=== PATIENT | female | born 1970 | race Caucasian/White ===

== ENCOUNTER 2018-07-14 07:56 | Outpatient (CLI) | payer OTHER ==
[~2018-07-14 07:56] MED LIST: EAR WAX DROPS15 M1 OTIC
== END 2018-07-14 08:00 | disposition home or self-care (01) ==
LOC: SONOGRAMA 07:56
DX: E04.1 Nontoxic single thyroid nodule (principal)

== ENCOUNTER 2021-07-10 07:52 | Outpatient (CLI) | payer OTHER | END 2021-07-10 07:56 | disposition home or self-care (01) | LOC: SONOGRAMA 07:52 | PROVIDERS: ATTEND Pathology Anatomic Pathology & Clinical Pathology | DX: E03.8 Other specified hypothyroidism (principal) ==

== ENCOUNTER → 2025-01-02 11:31 | Outpatient (CLI) | payer OTHER ==
[2025-01-02 09:07] LABS: HEMATOCRIT 39.3 % (36.0-45.00); HEMOGLOBIN 14.1 g/dL (12.0-15.00); MEAN CELL VOLUME 84.6 fL (80.00-100.00); MEAN CORPUSCULAR HEMOGLOBIN 30.4 pg (27.00-32.0); MEAN CORPUSCULAR HGB CONC 35.9 g/dl (32.0-36.0); PLATELET COUNT 194 K/uL (150-450); RED BLOOD COUNT 4.64 M/uL (4.00-6.00); RED CELL DISTRIBUTION WIDTH 13.6 % (11.5-14.5)
[2025-01-02 09:12] LABS: PH,URINE 6.5 (5.0-8.0); URINE APPEARANCE Clear; URINE BILIRRUBIN Negative (NEGATIVE); URINE BLOOD Negative; URINE COLOR Yellow; URINE GLUCOSE Negative (NEGATIVE); URINE KETONE Negative (NEGATIVE); URINE LEUKOCYTE Moderate; URINE NITRATE Negative; URINE PROTEIN Negative (NEGATIVE); URINE UROBILINOGEN 0.2 E.U./dl
[2025-01-02 09:13] LABS: URINE BACTERIA 188.4 uL (0.0-1933); URINE EPITHELIAL CELLS 25.9 uL (0.0-38.8); URINE RBC 7.3 uL (0.0-20.8); URINE WBC 16.2 uL (0.0-23.2)
[2025-01-02 09:17] LABS: URINE CAST 0.14 uL (0.0-1.40)
[2025-01-02 09:38] LABS: ob NEGATIVE (NEGATIVE)
[2025-01-02 10:00] LABS: ALBUMIN 4.1 gm/dL (3.4-5.0); BILIRUBIN TOTAL 0.73 mg/dL (0.3-1.2); CALCIUM 9.5 mg/dL (8.5-10.1); CHOL HDL RATIO 2.6 (0-5.0); CREATININE SERUM 0.75 mg/dL (0.55-1.02); FREE TRIODOTIRONINE 2.85 pg/ml (2.18-3.98); GFR 81.15; GLOBULINA 3.3 G/DL (2.4-3.5); POTASSIUM 3.97 mEq/L (3.5-5.1); T4 FREE 0.99 NG/ML (0.76-1.46); TOTAL PROTEIN 7.4 gm/dL (6.4-8.2)
[2025-01-02 10:02] LABS: TSH 0.121 uIU/mL (0.358-3.74)
[2025-01-03 09:07] LABS: CA 125 16.1 U/mL (0.0-38.1); ESTRADIOL SERUM < 5.0 pg/mL (.); FOLLICLE STIMULATING HORMONE 92.9 mIU/mL (.); PROGESTERONA 0.1 ng/mL (.)
== END | disposition home or self-care (01) ==
LOC: LAB 08:08
PROVIDERS: ATTEND Specialist
DX: D64.9 Anemia, unspecified (principal); E03.8 Other specified hypothyroidism; Z12.11 Encounter for screening for malignant neoplasm of colon; N95.1 Menopausal and female climacteric states; I10 Essential (primary) hypertension; C51.9 Malignant neoplasm of vulva, unspecified; N30.00 Acute cystitis without hematuria; E83.51 Hypocalcemia; A64 Unspecified sexually transmitted disease; N39.0 Urinary tract infection, site not specified; R97.8 Other abnormal tumor markers; R79.89 Other specified abnormal findings of blood chemistry; E55.9 Vitamin D deficiency, unspecified; A60.9 Anogenital herpesviral infection, unspecified

== ENCOUNTER 2025-01-02 12:04 | Outpatient (CLI) | payer OTHER | END 2025-01-02 12:10 | disposition home or self-care (01) | LOC: MAMO-SONO 12:04 | PROVIDERS: ATTEND Specialist | DX: N60.11 Diffuse cystic mastopathy of right breast (principal); N60.12 Diffuse cystic mastopathy of left breast; Z12.31 Encounter for screening mammogram for malignant neoplasm of breast; R10.2 Pelvic and perineal pain; E04.1 Nontoxic single thyroid nodule ==